=== PATIENT | female | born 1955 ===

== ENCOUNTER → 2017-03-18 | Outpatient (REF) | payer MEDICARE, MEDICAID | LOC: M LAB REF 11:37 | PROVIDERS: ATTEND Internal Medicine Gastroenterology | DX: R10.13 Epigastric pain (principal); R14.3 Flatulence ==

== ENCOUNTER → 2017-04-12 | Outpatient (REF) | payer MEDICARE, MEDICAID | LOC: M LAB REF 13:19 | PROVIDERS: ATTEND Internal Medicine Gastroenterology | DX: R10.13 Epigastric pain (principal); R14.3 Flatulence; K21.9 Gastro-esophageal reflux disease without esophagitis ==